=== PATIENT | male | born 1990 | race Caucasian/White ===

== ENCOUNTER 2016-09-16 00:30 | Inpatient (IN) | payer OTHER ==
--- NOTE | ~2016-09-16 | CT105 ---
[facility] A Service of [facility] RADIOLOGY TEXT RESULTS PATIENT: ANGELA CASTLE LOCATION: [facility] [address]-01 : [birth year] UNIT #: [id number] AGE: [address]: Lazarus Link SEX: M ORDER DR: [id number] [facility] [address]. [place], [place] [address] [id number] E MR#: [id number] Acc #: [id number] NAME: ANGELA CASTLE : 1990 SEX: M STUDY DATE/TIME: 09/16/2016 03:41 UNIT: JAY ROOM: STUDY DESCRIPTION: CT Pelvis W Cont Attending Physician: Joaquín Candelario Aprn Ordering Physician: Joaquín Candelario Aprn Primary Care Physician: Primary Care Physician No MEDICAL IMAGING REPORT This report is preliminary unless electronic signature is present EXAM CT pelvis, 09/16/2016 at 03:41 INDICATION Tail bone abscess for the last 4 days. Pain and warmth. TECHNIQUE Axial images were obtained through the pelvis following IV contrast administration. No comparison. Multiplanar reformats were obtained. Use dose reduction statement. FINDINGS The appendix is normal. The remainder of the GI tract within the pelvis is normal as well. Urinary bladder is normal. No free fluid. There is a left side perianal abscess with adjacent fat stranding. It measures about 1.8 cm x 1.4 cm x 2.1 cm. IMPRESSION Small left side perianal abscess measuring 1.4 cm x 1.8 cm x 2.1 cm. Remainder the pelvis CT is normal. Dictated by... Bryce Walsh Jr., M.D. THIS IS AN ELECTRONICALLY VERIFIED REPORT Bryce Walsh Jr., M.D. at 09/16/2016 6:11 AM ZAY/parth TD: 09/16/2016 05:28 JOB #: [id number] [facility] A Service of [facility] RADIOLOGY TEXT RESULTS PATIENT: ANGELA CASTLE LOCATION: [facility] [address]-43 : [birth year] UNIT #: [id number] AGE: [address]: Lazarus Link SEX: M ORDER DR: MEDICAL IMAGING REPORT Page 1 of 1 COPY
--- NOTE | ~2016-09-16 | OR ---
Unit #: [id number] #: [id number] Patient: ANGELA CASTLE [id number] [address] [address] [id number] I MR#: [id number] NAME: ANGELA CASTLE ROOM: 463 Date of Procedure: 09/16/2016 Admission Date: 09/16/2016 Surgeon: Yossi Srinivasan M.D. : 1990 Attending Physician: Lazarus Link M.D. OPERATIVE REPORT PREOPERATIVE DIAGNOSIS Left posterior perianal abscess. POSTOPERATIVE DIAGNOSIS Left posterior perianal abscess. PROCEDURE PERFORMED Incision and drainage of left posterior perianal abscess. ANESTHESIA General LMA anesthesia with 0.5% Marcaine plain local anesthesia. FINDINGS The patient had a 3 to 4 cm left-sided posterior perianal abscess. This was incised and drained and all loculations were broken up. SPECIMENS Sent to Microbiology. COMPLICATIONS None apparent. CONDITION The patient tolerated the procedure well. INDICATIONS FOR PROCEDURE The patient is a 25-year-old white male, who has had several perianal abscesses in the past. He presents at this time with a left posterior perianal abscess. DESCRIPTION OF PROCEDURE After obtaining informed consent as well as receiving scheduled antibiotics, the patient was brought to the operating room and after adequate general LMA anesthesia was obtained, he was placed very carefully into the lithotomy position with extremities carefully manipulated and all pressure points carefully padded. His perineum was prepped and draped in a sterile fashion. An 11 blade was used to incise the abscess cavity and a large amount of purulent material was evacuated. All loculations were broken up. The wound was irrigated, hemostasis was obtained with the Bovie, infiltrated with 0.5% Marcaine plain local anesthesia and packed with a saline soaked 4 x 4. A dry dressing was applied followed by ABD pad and mesh panties. Needle counts, sponge counts, and instrument counts Unit #: [id number] #: [id number] Patient: ANGELA CASTLE were all correct as reported by the scrub nurse x2. The patient went from the operating room to recovery room in stable condition. Dictated by... Glory Bradford/meg TD: 09/17/2016 04:25 JOB #: [id number] CC: [facility] OPERATIVE REPORT Page 1 of 1 X Yossi Srinivasan MD PROCEDURE OPERATIVE NOTE
--- NOTE | ~2016-09-16 | HP ---
Unit #: [id number] #: [id number] Patient: ANGELA CASTLE [id number] [address] [place], [place] [address] [id number] I MR#: [id number] NAME: ANGELA CASTLE ROOM: [address] Age: 25 Sex: M Admission Date: 09/16/2016 : 1990 Attending Physician: Lazarus Link M.D. Primary Care Physician: No Primary Care Physician HISTORY AND PHYSICAL CHIEF COMPLAINT Recurrent perirectal abscess. HISTORY OF PRESENT ILLNESS The patient is a 25-year-old white male who has had multiple perirectal abscesses and has developed severe pain, with evidence of a new abscess posteriorly over the last several days. He has had no fever or chills. He has no diabetes. The patient states he has had these lanced in the past and the last major abscess he had was approximately eight years ago. He has had several smaller ones lanced recently in the last couple of years. PAST MEDICAL HISTORY Serious illnesses none. PAST SURGICAL HISTORY None except for jaw surgery and leg surgery for fracture from an accident. 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 He has a normal good appetite. No recent weight change. The patient is a smoker and smokes approximately a pack to pack and a half of cigarettes per day. Only a social drinker. IMMUNIZATIONS Up to date. FAMILY HISTORY Noncontributory. ALLERGIES No known drug allergies. TRANSFUSIONS None in the past. CURRENT MEDICATIONS None chronically. REVIEW OF SYSTEMS Ten system review has been performed, which is unremarkable except for that in present illness. PHYSICAL EXAMINATION Unit #: [id number] #: [id number] Patient: ANGELA CASTLE GENERAL: The patient is a well-developed 25-year-old white male in no acute distress. VITALS: Temperature on admission is 97.9, pulse 68, respiratory rate 17, blood pressure 122/70. HEENT: Unremarkable. NECK: Supple. CHEST: There is equal bilateral expansion with bilateral equal breath sounds. Lungs clear bilaterally. HEART: Regular rhythm without murmurs or gallops. There is no evidence of cardiomegaly clinically. ABDOMEN: Soft and nontender. Benign without palpable masses or organomegaly. There is no gross abdominal distension. No guarding or rebound. Active bowel sounds present. No evidence of ascites or hernias. EXTREMITIES: Full range of motion without limitation. No evidence of peripheral edema. BACK: No CVA tenderness. NEUROLOGIC: Grossly intact. RECTAL: Approximately a 6 cm fluctuant, very tender mass posteriorly, compatible with a perirectal abscess. ASSESSMENT The patient has a recurrent perirectal abscess posteriorly. PLAN Will plan to do an incision and drainage of this under general anesthesia. The patient understands the procedure, including that of bleeding and recurrence and consents. Dictated by Doroteo Ruelas Jr., M.D. MICHAEL/johnny TD: 09/16/2016 07:12 JOB #: [id number] HISTORY AND PHYSICAL Page 1 of 1 X Doroteo Ruelas MD X HISTORY AND PHYSICAL
--- NOTE | ~2016-09-16 | DS ---
Unit #: [id number] #: [id number] Patient: ANGELA CASTLE [id number] [address] [place], [place] [address] [id number] I MR#: [id number] NAME: ANGELA CASTLE ROOM: 463 Age: 26 Sex: M Admission Date: 09/16/2016 : 1990 Discharge Date: 09/18/2016 Attending Physician: Lazarus Link M.D. Primary Care Physician: No Primary Care Physician DISCHARGE SUMMARY ADMITTING FINAL DIAGNOSIS Perianal abscess. SECONDARY DIAGNOSES Status post I and D of perirectal abscess in the past. OPERATIONS ON THIS ADMISSION Incision, drainage and debridement of a perianal abscess on 09/16/2016. BRIEF SUMMARY The patient is a 26-year-old white male who has had previous perirectal disease with perirectal abscesses, presented to the emergency room with an indurated fluctuant abscess posterior on the rectal area. He had not had any recent infections and it was felt that he needed incision and drainage of this. He was treated with IV antibiotics, taken to the operating room and underwent incision and drainage of this abscess by Dr. Srinivasan. Postop the patient has done well. At present, he is afebrile. He did spike a temperature yesterday to 101.5. His cultures are pending. His wounds are clear. He wants to go home and return to the office in approximately a week for followup. He will be discharged home on Levaquin 500 mg p.o. q. a.m. for the next week. He will be on hot tube soaks and saline moist dry dressings b.i.d. with local wound care and [place] 10 mg-325 one or two p.o. q.4-6 hours p.r.n. pain. He has been given our office number and instructions. He will be on a regular diet. Normal activity otherwise. Dictated by... Doroteo Ruelas Jr., M.D. MICHAEL/nick TD: 09/19/2016 11:13 JOB #: [id number] Unit #: [id number] #: [id number] Patient: ANGELA CASTLE DISCHARGE SUMMARY Page 1 of 1 X Doroteo Ruelas MD DISCHARGE SUMMARY
[2016-09-16 02:49] LABS: URINE APPEARANCE CLEAR; URINE BILIRUBIN NEG (NEG); URINE BLOOD NEG (NEG); URINE COLOR YELLOW; URINE GLUCOSE NEG (NEG); URINE KETONE NEG (NEG); URINE LEUKOCYTE ESTERASE NEG (NEG); URINE NITRATE NEG (NEG); URINE PROTEIN NEG (NEG); URINE SPECIFIC GRAVITY 1.036 (1.003-1.035)
[2016-09-16 02:50] LABS: BASOPHIL% 0.5 % (0-2.5); EOSINOPHIL# 0.1 X10e3 (0-0.7); EOSINOPHIL% 1.8 % (0.0-7.0); HEMATOCRIT 37.6 % (38.0-50.0); HEMOGLOBIN 12.5 gm/dL (13.0-16.0); LYMPHOCYTE% 29.4 % (17.0-45.0); MEAN CELL VOLUME 92.6 FL (83-96); MEAN CORPUSCULAR HEMOGLOBIN 30.9 PG (28-34); MEAN CORPUSCULAR HGB CONC 33.3 g/dL (30-36); MEAN PLATELET VOLUME 8.1 FL (6.5-11.5); MONOCYTE# 0.8 X10e3 (0-1.0); MONOCYTE% 12.2 % (3.0-12.0); NEUTROPHIL# 3.8 X10e3 (1.5-7.1); NEUTROPHIL% 56.1 % (40-75); PLATELET COUNT 209 X10e3 (140-420); RED BLOOD COUNT 4.06 X10e (3.90-5.60); RED CELL DISTRIBUTION WIDTH 12.9 % (11.0-15.5); WHITE BLOOD COUNT 6.8 X10e3 (4.0-10.5)
[2016-09-16 02:53] LABS: DIFF IND NO
[2016-09-16 03:03] LABS: CULTURE INDICATED? NO
[2016-09-16 03:14] LABS: ALBUMIN SERUM 3.9 g/dL (3.5-5.0); BILIRUBIN, DIRECT 0.1 mg/dL (0.0-0.2); BILIRUBIN,INDIRECT 0.1 mg/dL (0.0-0.9); BILIRUBIN,TOTAL 0.2 mg/dL (0.2-2.0); BUN/CREATININE RATIO 21.25; CREATININE SERUM 0.8 mg/dL (0.6-1.4); GLOM FILT RATE Estimated 122.5 mL/min (>60); POTASSIUM 4.1 mmol/L (3.5-5.1); PROTEIN TOTAL SERUM 6.7 g/dL (6.0-8.3)
[2016-09-16 04:27] LABS: POC - CKMB 3.4 ng/mL (0.0-7.9); POC - TROPONIN <0.05 ng/mL (<=0.05)
[2016-09-18 04:09] LABS: BUN/CREATININE RATIO 8.75; CALCIUM SERUM 8.2 mg/dL (8.4-10.2); CREATININE SERUM 0.8 mg/dL (0.6-1.4); GLOM FILT RATE Estimated 121.6 mL/min (>60); POTASSIUM 4.2 mmol/L (3.5-5.1)
[2016-09-18] MEDS ORDERED: HYDROCODON-ACE1 EAC5 PO (08:00)
[2016-09-18] MEDS ORDERED: LEVAQUIN PO (08:02)
[2016-09-18 08:48] LABS: CHLAMYDIA TRACH Not Detected (Not Detected); N GONOR Not Detected (Not Detected)
== END 2016-09-18 10:05 | disposition home or self-care (01) | DRG 349 ==
LOC: CED 00:30 → C4C 05:17 → CEDOF 05:17 → C4C 05:29 → CEDOF 05:29 → CED 05:29 → C4C 05:29 → CEDOF 08:05 → C4C 09-18 10:05
PROVIDERS: Nurse Practitioner Family; Surgery
PROC: 0D9Q0ZZ Drainage of Anus, Open Approach (ICD-10-PCS; principal; 2016-09-16 12:00)
DX: K61.0 Anal abscess (principal); F17.210 Nicotine dependence, cigarettes, uncomplicated
CPT/HCPCS: 36415; 72193; 80048; 80076; 80202; 81003; 82553; 84484; 85025; 87070; 87075; 87077; 87186; 87205; 87491; 87591; 99285; J1650; J2250; J2270; J2405; J2543; J3010; J3370; Q9967